=== PATIENT | male | born 1995 | race Caucasian/White ===

== ENCOUNTER 2016-09-13 02:59 | Emergency (ER) | payer SELFPAY ==
[2016-09-13 03:59] VITALS: BP 127/83
== END 2016-09-13 03:59 | disposition home or self-care (01) ==
LOC: ED 02:59
DX: J45.901 Unspecified asthma with (acute) exacerbation (principal)
CPT/HCPCS: J7620

== ENCOUNTER 2016-12-19 04:13 | Emergency (ER) | payer MEDICAID ==
[~2016-12-19] VITALS: Ht 175.3 cm; Wt 61.2 kg
[2016-12-19 05:36] VITALS: BP 109/60
== END 2016-12-19 05:36 | disposition home or self-care (01) ==
LOC: ED 04:13
DX: J45.901 Unspecified asthma with (acute) exacerbation (principal); F17.210 Nicotine dependence, cigarettes, uncomplicated; Z79.51 Long term (current) use of inhaled steroids
CPT/HCPCS: 99406; J7620

== ENCOUNTER 2017-02-19 01:06 | Emergency (ER) | payer OTHER ==
[2017-02-19 01:17] VITALS: BP 133/56
== END 2017-02-19 03:12 | disposition left against medical advice (07) ==
LOC: ED 01:06
DX: Z53.21 Procedure and treatment not carried out due to patient leaving prior to being seen by health care provider (principal)

== ENCOUNTER 2017-02-22 23:32 | Emergency (ER) | payer OTHER ==
[~2017-02-22] VITALS: Ht 177.8 cm; Wt 62.6 kg
[2017-02-22 23:39] VITALS: BP 119/83
== END 2017-02-23 00:53 | disposition home or self-care (01) ==
LOC: ED 23:32
DX: J45.901 Unspecified asthma with (acute) exacerbation (principal); F17.210 Nicotine dependence, cigarettes, uncomplicated; Z71.6 Tobacco abuse counseling
CPT/HCPCS: 99406; J7512; J7620

== ENCOUNTER 2017-08-15 21:23 | Emergency (ER) | payer OTHER ==
[~2017-08-15] VITALS: Ht 177.8 cm; Wt 59.0 kg
[2017-08-15 22:56] VITALS: BP 144/82
== END 2017-08-15 22:56 | disposition home or self-care (01) ==
LOC: ED 21:23
DX: S42.002A Fracture of unspecified part of left clavicle, initial encounter for closed fracture (principal); J45.909 Unspecified asthma, uncomplicated; V00.131A Fall from skateboard, initial encounter; Y93.51 Activity, roller skating (inline) and skateboarding; Y92.89 Other specified places as the place of occurrence of the external cause; Y99.8 Other external cause status

== ENCOUNTER 2017-10-18 07:31 | Emergency (ER) | payer OTHER ==
[~2017-10-18] VITALS: Ht 177.8 cm; Wt 59.0 kg
[2017-10-18 07:40] VITALS: Ht 177.8 cm; Wt 59.0 kg
[2017-10-18 08:15] VITALS: BP 123/81
== END 2017-10-18 18:19 | disposition home or self-care (01) ==
LOC: ED 07:31
DX: J45.901 Unspecified asthma with (acute) exacerbation (principal); F17.210 Nicotine dependence, cigarettes, uncomplicated
CPT/HCPCS: 99406

== ENCOUNTER 2018-03-04 20:36 | Emergency (ER) | payer OTHER ==
[~2018-03-04] VITALS: Ht 177.8 cm; Wt 60.4 kg
[2018-03-04 21:51] VITALS: BP 122/80
== END 2018-03-04 21:52 | disposition home or self-care (01) ==
LOC: ED 20:36
DX: J45.901 Unspecified asthma with (acute) exacerbation (principal); F17.210 Nicotine dependence, cigarettes, uncomplicated
CPT/HCPCS: J7620

== ENCOUNTER 2018-05-29 07:07 | Emergency (ER) | payer OTHER ==
[~2018-05-29] VITALS: Ht 177.8 cm; Wt 63.5 kg
[2018-05-29 07:08] VITALS: Ht 177.8 cm; Wt 63.5 kg
[2018-05-29 09:10] VITALS: BP 123/97
== END 2018-05-29 09:10 | disposition home or self-care (01) ==
LOC: ED 07:07
DX: J45.901 Unspecified asthma with (acute) exacerbation (principal); F17.200 Nicotine dependence, unspecified, uncomplicated
CPT/HCPCS: 99406; J7512; J7613

== ENCOUNTER 2020-04-19 10:16 | Emergency (ER) | payer SELFPAY ==
[~2020-04-19] VITALS: Ht 177.8 cm; Wt 68.0 kg
[2020-04-19 10:18] VITALS: Ht 177.8 cm; Wt 68.0 kg
[2020-04-19 11:56] VITALS: BP 117/74
== END 2020-04-19 11:56 | disposition home or self-care (01) ==
LOC: ED 10:16
DX: J45.901 Unspecified asthma with (acute) exacerbation (principal)
CPT/HCPCS: J0171; J7512; J7613; J7644